=== PATIENT | female | born 1985 | race Caucasian/White ===

== ENCOUNTER 2016-09-11 17:48 | Emergency (ER) | payer SELFPAY ==
[~2016-09-11] VITALS: Ht 160 cm; Wt 74.0 kg
[~2016-09-11 17:48] MED LIST: MACR100C PO
[2016-09-11 18:01] VITALS: BP 125/94; PULSE 85; RESP 16; TEMP 98.1; O2SAT 99
[2016-09-11 18:32] VITALS: BP 119/80; PULSE 75; RESP 16; O2SAT 99
--- NOTE | 2016-09-11 19:25 | RADRPT ---
EXAM DATE/TIME: 09/11/2016 18:52 [facility] COMPARISON: No previous studies available for comparison. INDICATIONS : Right upper quadrant pain. MEDICAL HISTORY : . Headache. Right upper quadrant pain. Tobacco use. Pleural effusion. SURGICAL HISTORY : None. ENCOUNTER: Initial ACUITY: 1 week PAIN SCORE: 7/10 LOCATION: Right upper quadrant MEASUREMENTS: LIVER: 15.5 cm length COMMON DUCT: 3 mm RIGHT KIDNEY: 10.6 x 5.3 x 4.9 cm FINDINGS: LIVER: Normal echotexture without focal lesion or ductal dilatation. COMMON DUCT: No intraluminal mass or stone visualized. GALLBLADDER: Gallbladder is contracted. Contains no stones, demonstrates no wall thickening or pericholecystic flu id. PANCREAS: The visualized portions are within normal limits. RIGHT KIDNEY: No evidence of hydronephrosis, stone, or mass. CONCLUSION: 1. Gallbladder is contracted. No gallstone seen. Gadiel Armas MD on September 11, 2016 at 19:22 Board Certified Radiologist. This report was verified electronically.
[2016-09-11 19:26] LABS: AUTOMATED NEUTROPHIL # 4.7 TH/MM3 (1.8-7.7); BASOPHIL % 0.5 % (0.0-2.0); EOSINOPHIL # 0.5 TH/MM3 (0-0.4); EOSINOPHIL % 5.9 % (0.0-4.0); HEMATOCRIT 39.2 % (35.0-46.0); HEMO FLAGS DIFF FINAL; LYMPH % 36.6 % (9.0-44.0); LYMPHOCYTE # 3.2 TH/MM3 (1.0-4.8); MEAN CELL VOLUME 80.6 FL (80.0-100.0); MEAN CORPUSCULAR HEMOGLOBIN 26.5 PG (27.0-34.0); MEAN CORPUSCULAR HGB CONC 32.9 % (32.0-36.0); PLATELET COUNT 193 TH/MM3 (150-450); RED BLOOD COUNT 4.87 MIL/MM3 (4.00-5.30); RED CELL DISTRIBUTION WIDTH 14.9 % (11.6-17.2); WHITE BLOOD COUNT 8.7 TH/MM3 (4.0-11.0)
[2016-09-11 19:43] VITALS: BP 114/71; PULSE 78; RESP 18; O2SAT 99
[2016-09-11 19:47] LABS: ANION GAP 7 MEQ/L (5-15); AST (GOT) 18 U/L (15-37); BICARBONATE 27.4 MEQ/L (21.0-32.0); BLOOD UREA NITROGEN 13 MG/DL (7-18); CHLORIDE 104 MEQ/L (98-107); GLOMERULAR FILTRATION RATE 78 ML/MIN (>89); POTASSIUM 3.4 MEQ/L (3.5-5.1); SODIUM (NA) 138 MEQ/L (136-145)
[2016-09-11 19:52] LABS: ALKALINE PHOSPHATASE 67 U/L (45-117); ALT (GPT) 41 U/L (10-53); TOTAL BILIRUBIN ADULT 0.4 MG/DL (0.2-1.0)
[2016-09-11] MEDS ORDERED: RANI150C PO (19:57)
--- NOTE | 2016-09-11 19:58 | PD ---
HPI Chief Complaint: GI Complaint Time Seen by Provider: 18:32 Travel History International Travel<30 days: No Contact w/Intl Traveler<30days: No Traveled to known affect area: No History of Present Illness HPI Is a 30 year-old woman presents to the emergency department with right upper quadrant abdominal pain and gassy feelings ongoing for couple days. She states she's had a lot of bloating and belching as well. She states she's also felt very fatigued. Pain is worse when she eats, or when she is more active. She otherwise has been feeling generally well and healthy. She does have a history of PE with her previous and has family members who have had blood clots before also. She's never been diagnosed with any thrombophilia. She has had multiple family members with gallbladder issues. History Past Medical History Narrative Medical History of PE in the setting of Tetanus Vaccination: > 5 Years Influenza Vaccination: No LMP: 09/04/16 : 5 Para: 4 Social History Alcohol Use: No Tobacco Use: Yes (1 PPD) Allergies-Medications (Allergen,Severity, Reaction): Coded Allergies: No Known Allergies (Unverified , 09/11/16) Reported Meds & Prescriptions Reported Meds & Active Scripts Active No Active Prescriptions or Reported Medications Review of Systems Except as stated in HPI: all other systems reviewed are Neg Physical Exam Narrative GENERAL: Well-appearing 30 year-old woman, no acute distress. SKIN: Focused skin assessment warm/dry. CARDIOVASCULAR: Regular rate and rhythm. No murmur appreciated. RESPIRATORY: No accessory muscle use. Clear to auscultation. Breath sounds equal bilaterally. GASTROINTESTINAL: Abdomen is flat and soft. Moderate right upper quadrant tenderness. No rebound or guarding. Mild epigastric tenderness. Negative Jameson's. MUSCULOSKELETAL: No obvious deformities. No edema. NEUROLOGICAL: Awake and alert. No obvious cranial nerve deficits. Motor grossly within normal limits. Normal speech. PSYCHIATRIC: Appropriate mood and affect; insight and judgment normal. Data Data Last Documented VS Vital Signs Date Time Temp Pulse Resp B/P Pulse Ox O2 Delivery O2 Flow Rate FiO2 09/11/16 19:43 78 18 114/71 99 Room Air 09/11/16 18:01 98.1 Orders Electrocardiogram (09/11/16 ) Complete Blood Count With Diff (09/11/16 18:34) Comprehensive Metabolic Panel (09/11/16 18:34) Lipase (09/11/16 18:34) Iv Access Insert/Monitor (09/11/16 18:34) Urinalysis - C+S If Indicated (09/11/16 18:34) Ed Urine Pregnancytest Poc (09/11/16 18:34) Us Abdomen Gallbladder (09/11/16 ) Acetamin-Hydrocod 325-5 Mg ([place] 5-325 (09/11/16 20:00) Labs Laboratory Tests Test 09/11/16 18:40 White Blood Count 8.7 TH/MM3 Red Blood Count 4.87 MIL/MM3 Hemoglobin 12.9 GM/DL Hematocrit 39.2 % Mean Corpuscular Volume 80.6 FL Mean Corpuscular Hemoglobin 26.5 PG Mean Corpuscular Hemoglobin 32.9 % Concent Red Cell Distribution Width 14.9 % Platelet Count 193 TH/MM3 Mean Platelet Volume 8.8 FL Neutrophils (%) (Auto) 54.0 % Lymphocytes (%) (Auto) 36.6 % Monocytes (%) (Auto) 3.0 % Eosinophils (%) (Auto) 5.9 % Basophils (%) (Auto) 0.5 % Neutrophils # (Auto) 4.7 TH/MM3 Lymphocytes # (Auto) 3.2 TH/MM3 Monocytes # (Auto) 0.3 TH/MM3 Eosinophils # (Auto) 0.5 TH/MM3 Basophils # (Auto) 0.0 TH/MM3 CBC Comment DIFF FINAL Differential Comment Sodium Level 138 MEQ/L Potassium Level 3.4 MEQ/L Chloride Level 104 MEQ/L Carbon Dioxide Level 27.4 MEQ/L Anion Gap 7 MEQ/L Blood Urea Nitrogen 13 MG/DL Creatinine 0.87 MG/DL Estimat Glomerular Filtration 78 ML/MIN Rate Random Glucose 126 MG/DL Calcium Level 9.1 MG/DL Total Bilirubin 0.4 MG/DL Aspartate Amino Transf 18 U/L (AST/SGOT) Alanine Aminotransferase 41 U/L (ALT/SGPT) Alkaline Phosphatase 67 U/L Total Protein 7.1 GM/DL Albumin 3.8 GM/DL Lipase 137 U/L [facility] Medical Decision Making Medical Screen Exam Complete: Yes Emergency Medical Condition: Yes Interpretation(s) My review of EKG: Normal sinus rhythm at a rate of 68, normal axis, normal intervals, no acute ischemia. LABS: CBC is unremarkable. CMP is unremarkable. Lipase is normal. UA Differential Diagnosis Biliary disease, cholecystitis, gastritis, PE, other Narrative Course Medical decision-making new para this 22 year-old woman presents emergent department with gaseous bloating nausea vomiting and right upper quadrant abdominal pain. This seems to be most likely biliary in origin. Ultrasound and labs are unremarkable. Gastritis is also possible. Concern for PE given her previous history however she has obvious abdominal tenderness and multiple GI symptoms they would not be explained by PE. Recommend against further evaluation for PE at this point. We'll treat for gastritis, both recommend further outpatient evaluation for possible hepatobiliary disease. Diagnosis Primary Impression: Abdominal pain Additional Instructions: Take ranitidine as prescribed. Take acetaminophen as needed for abdominal pain. Return to the emergency department for any new or worsening symptoms. Med/Other Pt SpecificInfo: Prescription(s) given Scripts Ranitidine 150 Mg [id number] Mg PO BID #60 CAP Prov:David Esquivel MD 09/11/16 Disposition: 01 DISCHARGE HOME Condition: Stable David Esquivel MD Sep 11, 2016 19:58
[2016-09-11 19:59] LABS: BLOOD, URINE NEG (NEG); COMMENT (UR) CULT NOT INDICATED; CULTURE IF INDICATED CULT NOT INDICATED; GLUCOSE,URINE NEG (NEG); KETONE, URINE NEG (NEG); MUCUS URINE FEW /lpf (OCC); NITRITE,URINE NEG (NEG); PH, URINE 6.5 (5.0-8.5); SQUAMOUS EPITHELIAL CELL URINE 6 /hpf (0-5); URINE COLOR YELLOW (YELLW/STRAW)
[2016-09-11] MEDS ORDERED: ACETAMINOPHEN/HYDROcodone 325 MG/5 MG TAB PO ONE (20:00)
--- NOTE | 2016-09-12 18:27 | EKG ---
Date Performed: 09/11/2016 Time Performed: 18:33:22 PTAGE: 30 years EKG: Sinus rhythm NORMAL ECG PREVIOUS TRACING 07/25/2015 @ 14.42.02 Compared to prior tracing no significant change DOCTOR: Pedro Pablo Edge Interpretating Date/Time 09/12/2016 18:26:04
== END 2016-09-11 20:14 | disposition home or self-care (01) ==
LOC: NEPD 17:48
DX: R10.11 Right upper quadrant pain (principal)
CPT/HCPCS: 76705; 80053; 81001; 83690; 84703; 85025; 93005

== ENCOUNTER 2017-06-07 15:02 | Emergency (ER) | payer MEDICAID ==
[~2017-06-07] VITALS: Ht 160 cm; Wt 77.3 kg
[~2017-06-07 15:02] MED LIST changes: -MACR100C PO; +RANI150C PO
[2017-06-07] MEDS ORDERED: IOHEXOL 350 MG/ML 10 ML VIAL (for RAD DIAG) IVCONTRAST ONE (15:03)
[2017-06-07 15:08] VITALS: BP 186/79; PULSE 91; RESP 18; TEMP 98.6; O2SAT 99
[2017-06-07] MEDS ORDERED: SODIUM CHLOR 0.9% 1000 ML INJ 1,000 ML IV SCH (16:41)
[2017-06-07] MEDS ORDERED: SODIUM CHLORIDE 0.9% FLUSH 10 ML FLUSH IV FLUSH PRN (16:45)
[2017-06-07] MEDS ORDERED: KETOROLAC TROMETHAMINE 30 MG/ML (IVP) VIAL IVP ONE (16:45)
[2017-06-07] MEDS ORDERED: ONDANSETRON HCL 4 MG/2 ML VIAL IVP ONE (16:45)
[2017-06-07 17:21] VITALS: BP 122/76; PULSE 76; RESP 18; O2SAT 99
--- NOTE | 2017-06-07 17:41 | RADRPT ---
EXAM DATE/TIME: 06/07/2017 17:12 [facility] COMPARISON: No previous studies available for comparison. INDICATIONS : Back and chest pain. MEDICAL HISTORY : PE. SURGICAL HISTORY : None. ENCOUNTER: Initial ACUITY: 3 days PAIN SCORE: 6/10 LOCATION: Bilateral chest FINDINGS: A single view of the chest demonstrates the lungs to be symmetrically aerated without evidence of mas s, infiltrate or effusion. The cardiomediastinal contours are unremarkable. Osseous structures are intact a mild levoscoliosis of the upper dorsal spine. CONCLUSION: No acute cardiopulmonary process. Jc Abbasi MD on June 07, 2017 at 17:39 Board Certified Radiologist. This report was verified electronically.
[2017-06-07 17:51] LABS: AUTOMATED NEUTROPHIL # 5.8 TH/MM3 (1.8-7.7); BASOPHIL % 0.5 % (0.0-2.0); EOSINOPHIL # 0.5 TH/MM3 (0-0.4); EOSINOPHIL % 5.1 % (0.0-4.0); HEMATOCRIT 43.5 % (35.0-46.0); HEMOGLOBIN 14.4 GM/DL (11.6-15.3); LYMPHOCYTE # 3.6 TH/MM3 (1.0-4.8); MEAN CELL VOLUME 81.3 FL (80.0-100.0); MEAN CORPUSCULAR HEMOGLOBIN 26.9 PG (27.0-34.0); MEAN CORPUSCULAR HGB CONC 33.1 % (32.0-36.0); MEAN PLATELET VOLUME 8.5 FL (7.0-11.0); MONO % 4.8 % (0.0-8.0); MONOCYTE # 0.5 TH/MM3 (0-0.9); NEUT % 55.6 % (16.0-70.0); PLATELET COUNT 238 TH/MM3 (150-450); RED BLOOD COUNT 5.35 MIL/MM3 (4.00-5.30); RED CELL DISTRIBUTION WIDTH 15.8 % (11.6-17.2); WHITE BLOOD COUNT 10.5 TH/MM3 (4.0-11.0)
--- NOTE | 2017-06-07 18:01 | PD ---
HPI Chief Complaint: Cold / Flu Symptoms Time Seen by Provider: 16:13 Travel History International Travel<30 days: No Contact w/Intl Traveler<30days: No Traveled to known affect area: No History of Present Illness HPI 31-year-old female presents to the emergency department with complaint of sharp pain to her lower back 2 days when she coughs or takes a deep breath. Says she has been coughing for 3 days. Is also complaining of dizziness, chills, nausea. Denies fevers or vomiting. Reports feeling short of breath that is worse with standing and activity. Says she has history of pulmonary embolism 4 years ago and stopped taking her blood thinners on her own 2 years ago. Denies chest pain. Reports body aches. Denies dysuria, urinary frequency, hematuria. Denies recent surgeries, travel, contraception use, leg edema. Last menstrual period was April 30 and says she took multiple test this morning and they were positive. Reports pelvic cramping, gas, bloating as if she is about to start her menses. Denies abnormal vaginal discharge, odor, leakage, bleeding. No primary care provider. No known allergies. History of PE. Denies other significant past medical history. Rates pain 7/10. Worse with movement. Has taken Tylenol and ibuprofen for symptom management. No known relieving factors. Has no other medical complaints. No other modifying factors or associated signs and symptoms. PFSH Past Medical History Diminished Hearing: No Headaches: Yes Respiratory: Yes (PE) ?: LMP: 04/30/17 : 5 Para: 4 : 1 Social History Alcohol Use: No Tobacco Use: Yes (1 PPD) Substance Use: No Allergies-Medications (Allergen,Severity, Reaction): Coded Allergies: No Known Allergies (Unverified Allergy, Unknown, 06/07/17) Reported Meds & Prescriptions Reported Meds & Active Scripts Active Ranitidine (Ranitidine HCl) 150 Mg Cap 150 Mg PO BID Review of Systems Except as stated in HPI: all other systems reviewed are Neg Physical Exam Narrative GENERAL: Well-nourished, well-developed female patient, in no acute distress; afebrile SKIN: Warm and dry. HEAD: Atraumatic. Normocephalic. EYES: Pupils equal and round. No scleral icterus. No injection or drainage. ENT: Mucosa pink and moist. Airway patent. NECK: Trachea midline. CARDIOVASCULAR: Regular rate and rhythm. No murmur appreciated. RESPIRATORY: No accessory muscle use. Clear to auscultation. Breath sounds equal bilaterally. GASTROINTESTINAL: Abdomen soft, no tenderness on palpation of the abdomen, nondistended. Hepatic and splenic margins not palpable. Bowel sounds are active 4 quadrants. Nonrigid. No guarding. BACK: No CVA tenderness. MUSCULOSKELETAL: No obvious deformities. No clubbing. No cyanosis. No edema. NEUROLOGICAL: Awake and alert. Oriented 3. No obvious cranial nerve deficits. Motor grossly within normal limits. Normal speech. PSYCHIATRIC: Appropriate mood and affect; insight and judgment normal. Data Data Last Documented VS Vital Signs Date Time Temp Pulse Resp B/P (MAP) Pulse Ox O2 Delivery O2 Flow Rate FiO2 06/07/17 17:21 76 18 122/76 (91) 99 Room Air 06/07/17 15:08 98.6 Orders Orders Complete Blood Count With Diff (06/07/17 15:11) Comprehensive Metabolic Panel (06/07/17 15:11) Urinalysis - C+S If Indicated (06/07/17 15:11) Ed Urine Pregnancytest Poc (06/07/17 15:11) Ondansetron Inj (Zofran Inj) (06/07/17 16:45) Sodium Chlor 0.9% 1000 Ml Inj (Ns 1000 M (06/07/17 16:41) Sodium Chloride 0.9% Flush (Ns Flush) (06/07/17 16:45) Chest, Single Ap (06/07/17 16:41) Ketorolac Inj (Toradol Inj) (06/07/17 16:45) Ct Pulmonary Angiogram (06/07/17 ) Iohexol 350 Inj (Omnipaque 350 Inj) (06/07/17 15:03) Labs Laboratory Tests Test 06/07/17 17:00 06/07/17 17:03 Urine Color YELLOW Urine Turbidity HAZY Urine pH 6.5 Urine Specific [place] 1.013 Urine Protein NEG mg/dL Urine Glucose (UA) NEG mg/dL Urine Ketones NEG mg/dL Urine Occult Blood NEG Urine Nitrite NEG Urine Bilirubin NEG Urine Urobilinogen LESS THAN 2.0 MG/DL Urine Leukocyte Esterase SMALL Urine RBC 1 /hpf Urine WBC 2 /hpf Urine Squamous Epithelial Cells 18 /hpf Microscopic Urinalysis Comment CULT NOT INDICATED White Blood Count 10.5 TH/MM3 Red Blood Count 5.35 MIL/MM3 Hemoglobin 14.4 GM/DL Hematocrit 43.5 % Mean Corpuscular Volume 81.3 FL Mean Corpuscular Hemoglobin 26.9 PG Mean Corpuscular Hemoglobin Concent 33.1 % Red Cell Distribution Width 15.8 % Platelet Count 238 TH/MM3 Mean Platelet Volume 8.5 FL Neutrophils (%) (Auto) 55.6 % Lymphocytes (%) (Auto) 34.0 % Monocytes (%) (Auto) 4.8 % Eosinophils (%) (Auto) 5.1 % Basophils (%) (Auto) 0.5 % Neutrophils # (Auto) 5.8 TH/MM3 Lymphocytes # (Auto) 3.6 TH/MM3 Monocytes # (Auto) 0.5 TH/MM3 Eosinophils # (Auto) 0.5 TH/MM3 Basophils # (Auto) 0.0 TH/MM3 CBC Comment DIFF FINAL Differential Comment Blood Urea Nitrogen 12 MG/DL Creatinine 0.88 MG/DL Random Glucose 78 MG/DL Total Protein 8.1 GM/DL Albumin 4.1 GM/DL Calcium Level 9.0 MG/DL Alkaline Phosphatase 65 U/L Aspartate Amino Transf (AST/SGOT) 21 U/L Alanine Aminotransferase (ALT/SGPT) 34 U/L Total Bilirubin 0.4 MG/DL Sodium Level 142 MEQ/L Potassium Level 3.6 MEQ/L Chloride Level 105 MEQ/L Carbon Dioxide Level 26.2 MEQ/L Anion Gap 11 MEQ/L Estimat Glomerular Filtration Rate 76 ML/MIN [facility] Medical Decision Making Medical Screen Exam Complete: Yes Emergency Medical Condition: Yes Medical Record Reviewed: Yes Differential Diagnosis UTI, , PE, pneumonia Narrative Course 31-year-old female with multiple complaints. Physical exam is unremarkable. No CVA tenderness. Patient reports having multiple positive test this morning and is a days late for her menses. UPT in the ER is negative. Patient has history of PE and is not on anticoagulant therapy. She is complaining of shortness of breath. Lung sounds are clear and equal throughout. She is in no acute distress. Oxygen saturation is 99% on room air. I discussed the patient with my attending physician, Dr. Olvera, and we discussed a plan of care. CBC, CMP, UA, chest x-ray, CT pulmonary angiogram , IV, IV fluids, Toradol, Zofran ordered. 175: CBC unremarkable. Chest x-ray with no acute findings. 185: Urinalysis without signs of infection. 1899: Report given to Lyndon Bailey PA-C at change of shift. See his note for final patient disposition. Marybel Haas Jun 07, 2017 18:01
[2017-06-07 18:02] LABS: ALBUMIN 4.1 GM/DL (3.4-5.0); ALT (GPT) 34 U/L (10-53); AST (GOT) 21 U/L (15-37); BICARBONATE 26.2 MEQ/L (21.0-32.0); BLOOD UREA NITROGEN 12 MG/DL (7-18); CHLORIDE 105 MEQ/L (98-107); CREATININE 0.88 MG/DL (0.50-1.00); GLOMERULAR FILTRATION RATE 76 ML/MIN (>89); GLUCOSE,RANDOM 78 MG/DL (74-106); SODIUM (NA) 142 MEQ/L (136-145)
[2017-06-07 18:03] LABS: BILIRUBIN, URINE NEG (NEG); BLOOD, URINE NEG (NEG); GLUCOSE,URINE NEG (NEG); KETONE, URINE NEG (NEG); NITRITE,URINE NEG (NEG); PH, URINE 6.5 (5.0-8.5); SQUAMOUS EPITHELIAL CELL URINE 18 /hpf (0-5); URINE COLOR YELLOW (YELLW/STRAW); URINE LEUKOCYTE ESTERASE SMALL (NEG)
[2017-06-07 18:05] LABS: ALKALINE PHOSPHATASE 65 U/L (45-117); TOTAL BILIRUBIN ADULT 0.4 MG/DL (0.2-1.0); TOTAL PROTEIN 8.1 GM/DL (6.4-8.2)
--- NOTE | 2017-06-07 19:08 | RADRPT ---
EXAM DATE/TIME: 06/07/2017 18:43 [facility] COMPARISON: CT PULMONARY ANGIOGRAM, July 25, 2015, 15:55. INDICATIONS : Patient complains of sharp pain in back, cough and dizziness. IV CONTRAST: 50 cc Omnipaque 350 (iohexol) IV RADIATION DOSE: 9.97 CTDIvol (mGy) MEDICAL HISTORY : history of pulmonary emboli SURGICAL HISTORY : None. ENCOUNTER: Initial ACUITY: 1 day PAIN SCALE: 7/10 LOCATION: chest TECHNIQUE: Volumetric scanning of the chest was performed using a pulmonary embolism protocol MIP images were re constructed. Using automated exposure control and adjustment of the mA and/or kV according to patien t size, radiation dose was kept as low as reasonably achievable to obtain optimal diagnostic quality images. DICOM format image data is available electronically for review and comparison. Follow-up recommendations for detected pulmonary nodules are based at a minimum on nodule size and pa tient risk factors according to Fleischner Society Guidelines. FINDINGS: PULMONARY ARTERIES: No filling defects are seen in the pulmonary arteries through the segmental level. LUNGS: There is no consolidation or pneumothorax . No concerning pulmonary nodule is visualized. PLEURAE: There is no pleural thickening or pleural effusion. MEDIASTINUM: There is good visualization of the great vessels of the middle mediastinum. No evidence of mediastin al or hilar adenopathy/mass. MUSCULOSKELETAL: Within normal limits for patient age. MISCELLANEOUS: The visualized upper abdominal organs demonstrate no acute abnormality. CONCLUSION: 1. No evidence for pulmonary embolism. 2. No infiltrate or pleural effusion. Gadiel Armas MD on June 07, 2017 at 19:04 Board Certified Radiologist. This report was verified electronically.
--- NOTE | 2017-06-07 19:28 | PD ---
Physical Exam Date Seen by Provider: Jun 07, 2017 Time Seen by Provider: 19:25 Narrative GENERAL: This is a well-nourished, well-developed patient, in no apparent distress. SKIN: No rashes, ecchymoses or lesions. Warm and dry. HEAD: Atraumatic. Normocephalic. EYES: PERRL, EOMI, no discharge or injection. No scleral icterus. EARS: Clear NOSE: Nasal turbinates appear normal. THROAT: Mucosa pink and moist. Airway patent. NECK: Trachea midline. supple, moves head freely. LUNGS: Clear to auscultation. CV: Regular in rhythm. ABDOMEN: Soft nontender.No guarding or rebound. EXT: No clubbing cyanosis or edema. Data Data Last Documented VS Vital Signs Date Time Temp Pulse Resp B/P (MAP) Pulse Ox O2 Delivery O2 Flow Rate FiO2 06/07/17 19:39 73 20 129/84 (99) 100 Room Air 06/07/17 15:08 98.6 Orders Orders Complete Blood Count With Diff (06/07/17 15:11) Comprehensive Metabolic Panel (06/07/17 15:11) Urinalysis - C+S If Indicated (06/07/17 15:11) Ed Urine Pregnancytest Poc (06/07/17 15:11) Ondansetron Inj (Zofran Inj) (06/07/17 16:45) Sodium Chlor 0.9% 1000 Ml Inj (Ns 1000 M (06/07/17 16:41) Sodium Chloride 0.9% Flush (Ns Flush) (06/07/17 16:45) Chest, Single Ap (06/07/17 16:41) Ketorolac Inj (Toradol Inj) (06/07/17 16:45) Ct Pulmonary Angiogram (06/07/17 ) Iohexol 350 Inj (Omnipaque 350 Inj) (06/07/17 15:03) Ed Urine Pregnancytest Poc (06/07/17 19:24) Ed Discharge Order (06/07/17 19:50) Labs Laboratory Tests Test 06/07/17 17:00 06/07/17 17:03 Urine Color YELLOW Urine Turbidity HAZY Urine pH 6.5 Urine Specific [place] 1.013 Urine Protein NEG mg/dL Urine Glucose (UA) NEG mg/dL Urine Ketones NEG mg/dL Urine Occult Blood NEG Urine Nitrite NEG Urine Bilirubin NEG Urine Urobilinogen LESS THAN 2.0 MG/DL Urine Leukocyte Esterase SMALL Urine RBC 1 /hpf Urine WBC 2 /hpf Urine Squamous Epithelial Cells 18 /hpf Microscopic Urinalysis Comment CULT NOT INDICATED White Blood Count 10.5 TH/MM3 Red Blood Count 5.35 MIL/MM3 Hemoglobin 14.4 GM/DL Hematocrit 43.5 % Mean Corpuscular Volume 81.3 FL Mean Corpuscular Hemoglobin 26.9 PG Mean Corpuscular Hemoglobin Concent 33.1 % Red Cell Distribution Width 15.8 % Platelet Count 238 TH/MM3 Mean Platelet Volume 8.5 FL Neutrophils (%) (Auto) 55.6 % Lymphocytes (%) (Auto) 34.0 % Monocytes (%) (Auto) 4.8 % Eosinophils (%) (Auto) 5.1 % Basophils (%) (Auto) 0.5 % Neutrophils # (Auto) 5.8 TH/MM3 Lymphocytes # (Auto) 3.6 TH/MM3 Monocytes # (Auto) 0.5 TH/MM3 Eosinophils # (Auto) 0.5 TH/MM3 Basophils # (Auto) 0.0 TH/MM3 CBC Comment DIFF FINAL Differential Comment Blood Urea Nitrogen 12 MG/DL Creatinine 0.88 MG/DL Random Glucose 78 MG/DL Total Protein 8.1 GM/DL Albumin 4.1 GM/DL Calcium Level 9.0 MG/DL Alkaline Phosphatase 65 U/L Aspartate Amino Transf (AST/SGOT) 21 U/L Alanine Aminotransferase (ALT/SGPT) 34 U/L Total Bilirubin 0.4 MG/DL Sodium Level 142 MEQ/L Potassium Level 3.6 MEQ/L Chloride Level 105 MEQ/L Carbon Dioxide Level 26.2 MEQ/L Anion Gap 11 MEQ/L Estimat Glomerular Filtration Rate 76 ML/MIN [facility] Medical Record Reviewed: Yes Supervised Visit with GAURAV: Yes Interpretation(s) Laboratory Tests Test 06/07/17 17:00 06/07/17 17:03 Urine Color YELLOW Urine Turbidity HAZY Urine pH 6.5 Urine Specific [place] 1.013 Urine Protein NEG mg/dL Urine Glucose (UA) NEG mg/dL Urine Ketones NEG mg/dL Urine Occult Blood NEG Urine Nitrite NEG Urine Bilirubin NEG Urine Urobilinogen LESS THAN 2.0 MG/DL Urine Leukocyte Esterase SMALL Urine RBC 1 /hpf Urine WBC 2 /hpf Urine Squamous Epithelial Cells 18 /hpf Microscopic Urinalysis Comment CULT NOT INDICATED White Blood Count 10.5 TH/MM3 Red Blood Count 5.35 MIL/MM3 Hemoglobin 14.4 GM/DL Hematocrit 43.5 % Mean Corpuscular Volume 81.3 FL Mean Corpuscular Hemoglobin 26.9 PG Mean Corpuscular Hemoglobin Concent 33.1 % Red Cell Distribution Width 15.8 % Platelet Count 238 TH/MM3 Mean Platelet Volume 8.5 FL Neutrophils (%) (Auto) 55.6 % Lymphocytes (%) (Auto) 34.0 % Monocytes (%) (Auto) 4.8 % Eosinophils (%) (Auto) 5.1 % Basophils (%) (Auto) 0.5 % Neutrophils # (Auto) 5.8 TH/MM3 Lymphocytes # (Auto) 3.6 TH/MM3 Monocytes # (Auto) 0.5 TH/MM3 Eosinophils # (Auto) 0.5 TH/MM3 Basophils # (Auto) 0.0 TH/MM3 CBC Comment DIFF FINAL Differential Comment Blood Urea Nitrogen 12 MG/DL Creatinine 0.88 MG/DL Random Glucose 78 MG/DL Total Protein 8.1 GM/DL Albumin 4.1 GM/DL Calcium Level 9.0 MG/DL Alkaline Phosphatase 65 U/L Aspartate Amino Transf (AST/SGOT) 21 U/L Alanine Aminotransferase (ALT/SGPT) 34 U/L Total Bilirubin 0.4 MG/DL Sodium Level 142 MEQ/L Potassium Level 3.6 MEQ/L Chloride Level 105 MEQ/L Carbon Dioxide Level 26.2 MEQ/L Anion Gap 11 MEQ/L Estimat Glomerular Filtration Rate 76 ML/MIN Last 24 hours Impressions Chest X-Ray 06/07/17 1641 Signed Impressions: Service Date/Time: Wednesday, June 07, 2017 17:12 - CONCLUSION: No acute cardiopulmonary process. Jc Abbasi MD CT Angiography 06/07/17 0000 Signed Impressions: Service Date/Time: Wednesday, June 07, 2017 18:43 - CONCLUSION: 1. No evidence for pulmonary embolism. 2. No infiltrate or pleural effusion. Gadiel Armas MD Differential Diagnosis . Narrative Course This is a 31-year-old white female who presents emergency department for evaluation of multiple somatic complaints. She states that she had several positive tests at home. Her pricey test here is negative. She was seen by Marybel Ortiz . I was asked to review the patient's CAT scan. I have examined the patient. Her lungs are clear. Her abdomen is soft nontender. She is nontoxic-appearing. Patient is unhappy. She states that she has been here for hours. And we have not made the final diagnosis. I have explained to the patient that we have not seen any emergent process thus far. She will need further outpatient follow-up. I have agreed to repeat her urinalysis today did confirm her negative hCG. I repeated her urine test which is still negative. She is advised to follow-up with the [facility] as well as crisis if she is still concerned due to . Patient is given a copy of her laboratory tests including her CAT scan report. This is back pain, dyspnea Diagnosis Primary Impression: Back pain Additional Impression: Dyspnea Referrals: [facility] 1 day Patient Instructions: General Instructions Additional Instruction: Rest. Increase fluids. 3 Advil every 6 hours as needed for pain. 2 Pepcid AC [id number] twice daily. Repeat test in 1 week. Follow-up with the [facility] tomorrow for recheck. Return to the ER for emergencies. Med/Other Pt SpecificInfo: No Meds Exist/No RX given Disposition: 01 DISCHARGE HOME Condition: Stable Lyndon Bailey Jun 07, 2017 19:28
[2017-06-07 19:39] VITALS: BP 129/84; PULSE 73; RESP 20; O2SAT 100
[2017-06-07 20:23] VITALS: BP 142/80; PULSE 72; RESP 20; O2SAT 100
== END 2017-06-07 20:24 | disposition home or self-care (01) ==
LOC: NEPD 15:02
DX: M54.5 Low back pain (principal); R06.00 Dyspnea, unspecified; R05 Cough; R42 Dizziness and giddiness; R68.83 Chills (without fever); R11.0 Nausea; M79.1 Myalgia; R10.2 Pelvic and perineal pain; F17.200 Nicotine dependence, unspecified, uncomplicated; Z86.711 Personal history of pulmonary embolism
CPT/HCPCS: 71045; 71275; 80053; 81001; 84703; 85025; 96361; 96374; 96375; 99285; J1885; J2405; J7030; Q9967